=== PATIENT | male | born 1965 | race Caucasian/White ===

== ENCOUNTER 2016-07-31 20:49 | Emergency (ER) | payer MEDICAID, MEDICARE ==
[~2016-07-31] VITALS: Ht 198.1 cm; Wt 87.0 kg
[~2016-07-31 20:49] MED LIST: AMIT100T2 PO; ATEN25TA PO; BUSP15TA3 PO; CITA20TA PO; COLE1TAB2 PO; KLO5T PO; TIOT18CA3 IH
[2016-07-31 20:52] VITALS: BP 149/104; PULSE 111; RESP 20; O2SAT 99
--- NOTE | 2016-07-31 20:53 | ED.REPORT ---
HPI-Chest Pain 40 and Over Date of Service Jul 31, 2016 ED Provider: Dr. Cardoza Pt is a 51 y/o male w/ a hx of Marfan syndrome, self-reported dilated aorta, recurrent spontaneous pneumothoraces, COPD, psychiatric illness, presenting to the ED c/o diffuse CP onset today. The patient was moving furniture all day and believes his pain is caused by ripped up old scar tissue. He c/o associated SOB and pleuritic pain. He denies cough, fever, chills, N/V/D. He presented to the ED on 11/23/15 and was seen by me with complaints of CP after lifting a heavy TV and a chest CTA was performed showing normal size of aorta with no dissection. Nursing Notes Stated Complaint: CHEST PAIN Chief Complaint: Chest Pain-Non Cardiac Nature Nursing Notes Reviewed: Yes Allergies: Coded Allergies: No Known Allergies (Verified Allergy, Unknown, 04/23/16) Scheduled Amitriptyline (Amitriptyline) 100 Mg Tablet 100 MG PO HS Atenolol (Atenolol) 25 Mg Tablet 25 MG PO BID Buspirone (Buspirone) 15 Mg Tablet 15 MG PO BID Citalopram Hydrobromide (Celexa) 20 Mg Tablet 40 MG PO DAILY Colestipol (Colestipol) 1 Gm Tablet 2 TAB PO BID Tiotropium [place] (Spiriva) 18 Mcg Cap.w.dev 18 MCG IH DAILY Scheduled PRN Clonazepam (Clonazepam) 0.5 Mg Tablet 0.5 MG PO TID PRN PRN For Anxiety General Time Seen by MD: 20:53 Chief Complaint Chest pain Hx Obtained From: Patient Arrived By: Walk-in Sudden in Onset?: No Onset Occurred: 5 - 8 hours ago Context of Onset: Heavy exertion Symptom Duration: Since onset Location: : Chest left: Chest right Quality: Aching, Painful Radiation: : Does not radiate Severity: Current: Moderate Severity: Maximum: Moderate Recent Healthcare: Previous diagnosis Similar Sx Previous: Yes Past Medical History Past Medical History 1. He reports that he has been diagnosed as having Marfan syndrome with a dilated aorta. - normal size on chest CTA 11/23/15 2. Chronic pain syndrome due to his history of spontaneous pneumothoraces for which he has had pleurodesis. 3. Generalized anxiety and major depression with history of a suicide attempt when his father in 2010. Two total suicide attempts 4. History of opiate and benzo dependence and history of DUI in the past. 5. Chronic obstructive pulmonary disease, not oxygen dependent. 6. History of recurrent pneumothoraces. 7. Irritable bowel syndrome 8. History of left lung nodule. 9. Hypotension 10. Hypernatremia 12. gastric ulcers Past Surgical History 1. Right thoracotomy and pleurodesis in 1995. 2. Left thoracotomy and pleurodesis in 1996. 3. Right hand surgery when he had an accident with a table saw and injured all the fingers except for the pinky finger. 4. Colonoscopy Family History Father of at age 74 from an abdominal aneurysm. His older brother, Louis, is an alcoholic. Smoking History Current Every Day Smoker Social History Alcohol Use: Denies alcohol use Drug Use: THC Other Social History: Good social support, Local resident Ambulatory Status Independent Review of Systems Constitutional: Denies: Chills, Fever Respiratory: Reports: Pleuritic pain, Shortness of breath, Denies: Non-productive cough Cardiovascular: Reports: Chest pain, Denies: Dyspnea on exertion, Edema GI: Denies: Abdominal pain, Nausea, Vomiting Complete sys rev & neg: except as marked. Physical Exam Initial Vital Signs Vital Signs (First) Date Time Temp Pulse Resp B/P Pulse Ox O2 Delivery O2 Flow Rate FiO2 07/31/16 20:52 36.9 111 20 149/104 99 Room Air 07/31/16 21:08 2 Initial VS: Reviewed, Vital signs abnormal Head / Eyes: Atraumatic, Normocephalic, PERRL ENT: Mucous membranes moist, Conjunctiva normal, No scleral icterus Neck: Supple, Full range of motion Extremities: Vascular intact, Neuro intact, No swelling, No tenderness Skin: Warm, Dry, No cyanosis Neurologic: Alert, Oriented, Nonfocal Psychiatric: Mood/affect normal, Behavior normal, Normal thought content General/Constitutional: Awake, Alert, Cooperative, Not toxic appearing Distress / Hydration: Positive: Distress moderate Appearance / Presentation: Positive: In pain, Uncomfortable Marfan appearance Respiratory / Chest: Atraumatic, Breath sounds NL, Breath sounds = bilat, No rales, No rhonchi, No wheezing, No stridor, No chest wall deformity, No crepitus Diffuse chest wall tenderness, increased over scar tissue on left chest wall Splinting respirations Cardiovascular: Heart rate NL, Regular rhythm, Heart sounds NL, No gallop, No murmurs, No rubs, Cap refill not delayed, Peripheral circulation NL Abdomen: Atraumatic, Soft, Non-tender, No guarding, No rebound, No distention, No palpable mass Interpretation & Diagnostics Lab Results Interpretation Result Diagram: 07/31/16 2100 07/31/16 2100 Test 07/31/16 21:00 08/01/16 04:30 White Blood Count 7.0th/mm3 (3.8-10.1) Red Blood Count 4.53mil/mm3 (4.40-5.80) Hemoglobin 13.4g/dL (13.8-17.2) Hematocrit 40.5% (41.0-50.0) Mean Corpuscular Volume 89.4fL (81-100) Mean Corpuscular Hemoglobin 29.6pg (27.0-35.0) Mean Corpuscular Hemoglobin Concent 33.1% (32.0-37.0) Red Cell Distribution Width 13.7% (12.3-15.4) Platelet Count 233bil/L (150-400) Neutrophils (%) (Auto) 52.6% (40-74) Lymphocytes (%) (Auto) 38.5% (14-46) Monocytes (%) (Auto) 7.4% (4-12) Eosinophils (%) (Auto) 1.1% (0-5) Basophils (%) (Auto) 0.3% (0-3) Hold Purple Top Tube Received (Received) D-Dimer < 0.50mg/L FEU (<0.50) Hold Blue Top Tube Received (Received) Sodium Level 138mEq/L (134-144) Potassium Level 4.0mEq/L (3.5-5.2) Chloride Level 99mEq/L (97-108) Carbon Dioxide Level 23mmol/L (18-29) Blood Urea Nitrogen 10mg/dL (6-24) Creatinine 1.09mg/dL (0.76-1.27) Estimat Glomerular Filtration Rate 75mL/min (>59) Glucose Level 109mg/dL (60-99) Calcium Level 9.0mg/dL (8.5-10.1) Total Bilirubin 0.2mg/dL (0.0-1.2) Aspartate Amino Transf (AST/SGOT) 14U/L (0-50) Alanine Aminotransferase (ALT/SGPT) 9U/L (0-44) Alkaline Phosphatase 69U/L (25-150) Total Protein 6.7g/dL (6.4-8.4) Albumin 3.8g/dL (3.4-5.0) Hold [place] Top Tube Received (Received) Troponin T 0.010ug/L (0.0-0.011) ECG Interpretation ECG Interpretation: Sinus tachycardia rate 100 Time: 21:24 Interpreted by: ED physician Normal ECG Interpretation: No acute ischemic changes X-Ray Chest Interpretation View: Portable, 1 view Interpretation / Wet Read by: Wet read ED physician Reviewed Previous Films: No change NL X-Ray Chest Findings: No infiltrate, No acute disease Re-Eval/Medical Decision Med Decision/Clinical Course I know Kaushik very well. I taken care of him several times. We had long discussions as well as Marfan syndrome. Today nothing seems like an aortic dissection or pulmonary emboli. He can ripped up some scar tissue in his left chest when he was moving furniture. He was adequately treated with some analgesia. D-dimer was negative. Troponins were negative. I do not feel that another CT is indicated he concurs. He has symmetric blood pressure 4 tremors. His mediastinum is not widened and he has negative d-dimer. He has had a recent chest CT. I think anymore at this point is his all risk and no benefit. He concurs. He has been doing well mentally. No suicidal ideations. He does seem to be a moderately severe amount of pain so be discharged home with a Percocet 10 pack and have close outpatient follow-up. Routine opiate warnings were given Time of Eval: 02:59 Patient Status: Condition resolved, Complete relief, Pain resolved Re-Evaluation/Progress Note: Pt rechecked. Informed pt of plan for treatment. Pt understands and agrees with plan for treatment. F/U and RTER warnings given. All questions addressed. Counseled Regarding: Diagnosis, Lab results, Need for follow-up, When/why to return to ED Discharge & Departure Primary Impression: Non-cardiac chest pain Disposition: Home Discharge Condition All VS Reviewed: Yes Condition: Stable Patient Instructions: Chest Pain (ED) Additional Instructions: Your EKG, serial heart enzymes, chest x-ray, and labs today were normal. I suspect your chest pain is musculoskeletal in nature. Take 1-2 Percocet every 6 hours as needed for severe pain. Do not take this with any other sedating medications including your anti-anxiety medications. Do not drive, drink alcohol, or consume Acetaminophen when taking Percocet. Return to the emergency department for any new or worsening symptoms. Follow-up with your doctor next week. Referrals: Jacky Tran DO (PCP) [place] Attestation Portions of this note were transcribed by Alfa Urbina. I, Dr. Cardoza personally performed the history, physical exam and medical decision-making; I reviewed and confirmed the accuracy of the information in the transcribed note. Signed by Ariane Lubin, 07/31/162129 copies to: Jacky Tran Todd P DO Jul 31, 2016 20:53 ALFA URBINA Jul 31, 2016 21:01
[2016-07-31 21:08] VITALS: RESP 20; O2SAT 100
[2016-07-31 21:18] LABS: BASOPHILS % (AUTO) 0.3 % (0-3); EOSINOPHILS % (AUTO) 1.1 % (0-5); MONOCYTES % (AUTO) 7.4 % (4-12); Mean Corpuscular Hemoglobin 29.6 pg (27.0-35.0); Mean Corpuscular Volume 89.4 fL (81-100); NEUTROPHILS % (AUTO) 52.6 % (40-74); Platelet Count 233 bil/L (150-400)
[2016-07-31 22:07] LABS: TROPONIN T 0.01 ug/L (0.0-0.011)
[2016-07-31 22:39] VITALS: BP 131/86; PULSE 83; RESP 18; O2SAT 98
[2016-07-31] MEDS: HYDROmorphone 0.5 mg/0.5 mL iSecure Syringe IVPUSH PRN (22:40)
[2016-07-31 23:30] VITALS: BP 133/89; PULSE 75; RESP 18; O2SAT 98
[2016-08-01] VITALS: BP 118/79; PULSE 81; RESP 18; O2SAT 99
[2016-08-01] MEDS: HYDROmorphone 0.5 mg/0.5 mL iSecure Syringe IVPUSH PRN (00:16)
[2016-08-01 01:00] VITALS: BP 122/75; PULSE 68; RESP 18; O2SAT 99
[2016-08-01 02:30] VITALS: BP 130/69; PULSE 67; RESP 18; O2SAT 99
[2016-08-01] MEDS ORDERED: _oxyCODONE/APAP 5-325 mg Tablet PO PRN (03:00)
[2016-08-01 05:40] VITALS: BP 118/84; PULSE 78; RESP 18; O2SAT 99
--- NOTE | 2016-08-01 06:21 | DRSVH ---
PROCEDURE: X-RAY CHEST ONE VIEW, PORTABLE ([id number]) INDICATIONS: 51-year-old male with chest pain, and history of Marfan syndrome. TECHNIQUE: One view of the chest was acquired. COMPARISON: [facility], CR, XR CHEST 1V PORTABLE, 12/01/2015, 5:17 AM. [facility], CR, XR CHEST 1VW (PORTABLE), 11/24/2015, 23:28. [facility], CR, XR CHEST 1VW (PO RTABLE), 11/22/2015, 20:31. FINDINGS: Surgical changes and devices: None. Lungs and pleura: No pleural effusions or pneumothorax. Lungs are clear. Mediastinum: Mediastinal contours appear normal. Heart size is normal. Bones and chest wall: No suspicious bony lesions. Overlying soft tissues appear unremarkable. IMPRESSION: No acute cardiopulmonary disease. Dictated by: Chance Altman M.D. on 08/01/2016 at 6:18 Approved by: Chance Altman M.D. on 08/01/2016 at 6:20
== END 2016-08-01 05:41 | disposition home or self-care (01) ==
LOC: SED 20:49
DX: R07.89 Other chest pain (principal); J44.9 Chronic obstructive pulmonary disease, unspecified; F17.200 Nicotine dependence, unspecified, uncomplicated
CPT/HCPCS: 36415; 71010; 80053; 84484; 85025; 85378; 93005; 96374; 96376; 99285; J1170

== ENCOUNTER 2016-08-30 20:40 | Emergency (ER) | payer MEDICARE, MEDICAID ==
[~2016-08-30] VITALS: Ht 198.1 cm; Wt 86.4 kg
[2016-08-30 21:59] VITALS: BP 114/77; PULSE 87; RESP 20; O2SAT 98
[2016-08-30 23:05] LABS: BASOPHILS % (AUTO) 0.3 % (0-3); EOSINOPHILS % (AUTO) 0.6 % (0-5); MONOCYTES % (AUTO) 6.3 % (4-12); Mean Corpuscular Hemoglobin 29.9 pg (27.0-35.0); Mean Corpuscular Volume 86.9 fL (81-100); NEUTROPHILS % (AUTO) 64.7 % (40-74); Platelet Count 236 bil/L (150-400)
[2016-08-30 23:49] LABS: Magnesium 2.1 mg/dL (1.6-2.6)
--- NOTE | 2016-08-30 23:56 | ED.REPORT ---
HPI-NVD Date of Service Aug 30, 2016 ED Provider: Dr. Dela Cruz 51 y/o male with a hx of COPD, emphysema and Marfan syndrome presents to the ED with multiple complaints.Pt reports nausea, vomiting, diarrhea and chills for the last two weeks. He also complains of a burning sensation on the right side of his abdomen and a lump in the back of his throat. Pt reports concern that his sx may be related to his gastric ulcer. Nursing Notes Stated Complaint: VOMITING, DIARRHEA, GROWTH ON THROAT Chief Complaint: General Complaint Nursing Notes Reviewed: Yes Allergies: Coded Allergies: No Known Allergies (Verified Allergy, Unknown, 04/23/16) Scheduled Amitriptyline (Amitriptyline) 100 Mg Tablet 100 MG PO HS Atenolol (Atenolol) 25 Mg Tablet 25 MG PO BID Buspirone (Buspirone) 15 Mg Tablet 15 MG PO BID Citalopram Hydrobromide (Celexa) 20 Mg Tablet 40 MG PO DAILY Colestipol (Colestipol) 1 Gm Tablet 2 TAB PO BID Tiotropium [place] (Spiriva) 18 Mcg Cap.w.dev 18 MCG IH DAILY Scheduled PRN Clonazepam (Clonazepam) 0.5 Mg Tablet 0.5 MG PO TID PRN PRN For Anxiety Metoclopramide (Metoclopramide) 10 Mg Tablet 10 MG PO QID PRN PRN For Nausea General Time Seen by MD: 23:55 Chief Complaint Nausea, Vomiting Hx Obtained From: Patient Arrived By: Walk-in Onset Occurred: More than a week ago... (2 weeks) Symptom Duration: Since onset Location: : Epigastric: RUQ Quality: Painful Severity: Current: Mild Severity: Maximum: Mild Recent Healthcare: No recent doctor visit Similar Sx Previous: No Past Medical History Past Medical History 1. He reports that he has been diagnosed as having Marfan syndrome with a dilated aorta. - normal size on chest CTA 11/23/15 2. Chronic pain syndrome due to his history of spontaneous pneumothoraces for which he has had pleurodesis. 3. Generalized anxiety and major depression with history of a suicide attempt when his father in 2010. Two total suicide attempts 4. History of opiate and benzo dependence and history of DUI in the past. 5. Chronic obstructive pulmonary disease, not oxygen dependent. 6. History of recurrent pneumothoraces. 7. Irritable bowel syndrome 8. History of left lung nodule. 9. Hypotension 10. Hypernatremia 12. gastric ulcers Past Surgical History 1. Right thoracotomy and pleurodesis in 1995. 2. Left thoracotomy and pleurodesis in 1996. 3. Right hand surgery when he had an accident with a table saw and injured all the fingers except for the pinky finger. 4. Colonoscopy Family History Father of at age 74 from an abdominal aneurysm. His older brother, Louis, is an alcoholic. Smoking History Current Every Day Smoker Social History Alcohol Use: Denies alcohol use Drug Use: THC Other Social History: Good social support, Local resident Ambulatory Status Independent Review of Systems Reports: lump in the back of the throat. Constitutional: Reports: Chills GI: Reports: Abdominal pain, Diarrhea, Nausea, Vomiting Complete sys rev & neg: except as marked. Physical Exam Initial Vital Signs Vital Signs (First) Date Time Temp Pulse Resp B/P Pulse Ox O2 Delivery O2 Flow Rate FiO2 08/30/16 21:59 37.1 87 20 114/77 98 08/30/16 23:59 Room Air Initial VS: Reviewed, Vital signs normal Head / Eyes: Atraumatic, Normocephalic, PERRL Neck: Supple, Non-tender, Full range of motion Respiratory: Breath sounds normal, Clear to auscultation, No respiratory distress Cardiovascular: Regular rate & rhythm, Heart sounds normal, Intact distal pulses Extremities: Vascular intact, Neuro intact, No swelling, No tenderness Skin: Warm, Dry, No cyanosis Neurologic: Alert, Oriented, Nonfocal Psychiatric: Mood/affect normal, Behavior normal, Normal thought content General/Constitutional: Awake, Alert Distress / Hydration: Positive: Dehydration mild Abdomen: Atraumatic Tenderness/Guarding/Rebound: Positive: Tender RUQ..., Tender epigastric Pustule on right tonsil. Interpretation & Diagnostics Lab Results Interpretation Result Diagram: 08/30/16223108/30/162231 Test 08/30/16 22:32 08/31/16 00:10 White Blood Count 9.9th/mm3 (3.8-10.1) Red Blood Count 4.95mil/mm3 (4.40-5.80) Hemoglobin 14.8g/dL (13.8-17.2) Hematocrit 43.0% (41.0-50.0) Mean Corpuscular Volume 86.9fL (81-100) Mean Corpuscular Hemoglobin 29.9pg (27.0-35.0) Mean Corpuscular Hemoglobin Concent 34.4% (32.0-37.0) Red Cell Distribution Width 12.4% (12.3-15.4) Platelet Count 236bil/L (150-400) Neutrophils (%) (Auto) 64.7% (40-74) Lymphocytes (%) (Auto) 27.9% (14-46) Monocytes (%) (Auto) 6.3% (4-12) Eosinophils (%) (Auto) 0.6% (0-5) Basophils (%) (Auto) 0.3% (0-3) Band Neutrophils % 0% (1-5) Sodium Level 137mEq/L (134-144) Potassium Level 3.8mEq/L (3.5-5.2) Chloride Level 96mEq/L (97-108) Carbon Dioxide Level 23mmol/L (18-29) Blood Urea Nitrogen 16mg/dL (6-24) Creatinine 1.01mg/dL (0.76-1.27) Estimat Glomerular Filtration Rate 82mL/min (>59) Glucose Level 87mg/dL (60-99) Calcium Level 8.7mg/dL (8.5-10.1) Magnesium Level 2.1mg/dL (1.6-2.6) Total Bilirubin 0.3mg/dL (0.0-1.2) Aspartate Amino Transf (AST/SGOT) 16U/L (0-50) Alanine Aminotransferase (ALT/SGPT) 9U/L (0-44) Alkaline Phosphatase 82U/L (25-150) Total Protein 7.2g/dL (6.4-8.4) Albumin 4.5g/dL (3.4-5.0) Lipase 18U/L (13-60) Hold [place] Top Tube Received (Received) Urine Color Yellow (YELLOW) Urine Appearance Clear (CLEAR,HAZY) Urine pH 5.5 (5.0-8.0) Urine Specific [place] 1.005 (1.003-1.035) Urine Protein Negativemg/dL (NEG,TRACE) Urine Glucose (UA) Negativemg/dL (NEGATIVE) Urine Ketones Negativemg/dL (NEGATIVE) Urine Occult Blood Small (NEGATIVE) Urine Nitrite Negative (NEGATIVE) Urine Bilirubin Negative (NEGATIVE) Urine Urobilinogen Normalmg/dL (NORMAL) Urine Leukocyte Esterase Negative (NEGATIVE) Urine RBC 0-2/hpf (0-2) Urine WBC 0-5/hpf (0-5) Urine Epithelial Cells Occasional/hpf (NONE-MOD) Urine Crystals None seen (NONE SEEN) Urine Bacteria None/hpf (NONE-FEW) Urine Hyaline Casts None/lpf (NONE) Urine Granular Casts None seen (NONE SEEN) Urine Waxy Casts None seen (NONE SEEN) Urine Red Blood Cell Casts None seen (NONE SEEN) Urine White Blood Cell Casts None seen (NONE SEEN) Urine Mucus None seen (None Seen) Urine Trichomonas None seen (NONE SEEN) Urine Yeast None (NONE SEEN) Urinalysis Comment None Urine Culture Reflexed Not indicated Lab values outside NL range: no clinical significance. Lab Results Interpretation: Rapid strep negative Re-Eval/Medical Decision Med Decision/Clinical Course 51-year-old male who has a nonspecific abdominal pain and a variety of other symptoms. ER workup is unremarkable. His abdominal exam shows some diffuse mild abdominal tenderness, nonspecific. Strep throat test is negative. He will be discharged home. He requests Reglan which she has taken in the past with good relief of his nausea symptoms. It has a potential for interaction with his SSRI. He was warned about symptoms to watch for and told to limit his dose to 2 pills daily when necessary. He will follow-up with his primary doctor. Source of Hx: Old records Re-Evaluation/Progress #1: Time of Eval: 03:25 Patient Status: Condition improved Re-Evaluation/Progress Note: Pt rechecked. Pt reports imrpovement in condition Re-Evaluation/Progress #2: Time of Eval: 05:27 Patient Status: Condition improved Re-Evaluation/Progress Note: Rechecked pt. Discussed lab results and diagnosis. Informed the pt of the plan to discharge. Pt understands and agrees with plan. F/U instructions and RTER warning given. All questions addressed. Discharge & Departure Impression: Primary Impression: Nausea & vomiting Vomiting type: unspecified Vomiting Intractability: non-intractable Qualified Code: R11.2 - Nausea with vomiting, unspecified Additional Impression: Abdominal pain Abdominal location: generalized Qualified Code: R10.84 - Generalized abdominal pain Disposition: Home Discharge Condition All VS Reviewed: Yes Patient Instructions: Acute Nausea and Vomiting (ED) Additional Instructions: Ondansetron 4-8 mg dissolved orally 4 times daily. Reglan (metoclopramide) Referrals: Jacky Tran DO (PCP) Scribe Attestation Portions of this note were transcribed by Miguelangel Mason. I, , personally performed the history, physical exam and medical decision-making;I reviewed and confirmed the accuracy of the information in the transcribed note. Signed by Ariane Story. 08/31/16 0557 copies to: Jacky Tran Howard L MD Aug 30, 2016 23:56 Miguelangel Mason August 31, 2016 00:26
[2016-08-30 23:59] VITALS: BP 104/69; PULSE 78; RESP 20; O2SAT 98
[2016-08-31] MEDS ORDERED: 0.9% Sodium Chloride 1,000 ML IV ONE ×2 (00:24→02:45)
[2016-08-31] MEDS ORDERED: Pantoprazole 4 mg/mL 10 mL Inj IVPUSH ONE (00:25)
[2016-08-31] MEDS: HYDROmorphone 0.5 mg/0.5 mL iSecure Syringe IVPUSH PRN ×2 (00:42→02:21)
[2016-08-31] MEDS: Ondansetron 2 mg/mL 2 mL Inj IVPUSH PRN ×2 (00:42→02:21)
[2016-08-31 00:59] LABS: APPEARANCE,URINE CLEAR (CLEAR,HAZY); COLOR,URINE YELLOW (YELLOW); OCCULT BLOOD,URINE SMALL (NEGATIVE); PH,URINE 5.5 (5.0-8.0); UROBILINOGEN,URINE NORMAL (NORMAL)
[2016-08-31 05:02] VITALS: BP 125/77; PULSE 80; RESP 18; O2SAT 98
[2016-08-31] MEDS ORDERED: _Ondansetron ODT 4 mg Tablet PO PRN (05:35)
[2016-08-31] MEDS ORDERED: METO10TA3 PO (05:39)
== END 2016-08-31 06:02 | disposition home or self-care (01) ==
LOC: SED 20:40
DX: R11.2 Nausea with vomiting, unspecified (principal); R10.11 Right upper quadrant pain; R19.7 Diarrhea, unspecified; R68.83 Chills (without fever); R22.1 Localized swelling, mass and lump, neck; F17.200 Nicotine dependence, unspecified, uncomplicated; J44.9 Chronic obstructive pulmonary disease, unspecified
CPT/HCPCS: 36415; 80053; 81000; 83690; 83735; 85025; 87880; 96361; 96374; 96375; 96376; 99285; J1170; J2405; J7030

== ENCOUNTER 2016-12-11 15:25 | Emergency (ER) | payer MEDICARE, MEDICAID ==
[~2016-12-11] VITALS: Ht 198.1 cm; Wt 86.0 kg
[~2016-12-11 15:25] MED LIST changes: +METO10TA3 PO
[2016-12-11 15:28] VITALS: BP 154/98; PULSE 74; RESP 20; O2SAT 99
--- NOTE | 2016-12-11 15:35 | ED.REPORT ---
HPI-General Illness Date of Service Dec 11, 2016 ED Provider: Berlin Amaral MD A 51 year old male presents to the ED with a history of Marfan's syndrome with a dilated aorta, anxiety, hypotension, IBS, hypernatremia, COPD and recurrent pneumothoraces presents to the ED with right sided, aching chest pain that began at 0700 this morning. The patient woke up with the pain this morning and it has become progressively worse over the course of the day. Associated symptoms include SOB and the pain is exacerbated by breathing and movement, including moving his arms around. He rates his current pain as a 9/10. The pain does not radiate to his back, jaw or arm. He denies any new headaches, fevers, chills, vision changes, diarrhea, constipation, nausea, vomiting, hematochezia, hematemesis, dysuria, unilateral weakness, numbness or tingling. The patient denies any recent illnesses. He states that he was moving some things and thinks this may have made it worse. Nursing Notes Stated Complaint: CHEST PAIN Chief Complaint: Chest Pain Nursing Notes Reviewed: Yes Allergies: Coded Allergies: No Known Allergies (Verified Allergy, Unknown, 04/23/16) Scheduled Amitriptyline (Amitriptyline) 100 Mg Tablet 100 MG PO HS Atenolol (Atenolol) 25 Mg Tablet 25 MG PO BID Buspirone (Buspirone) 15 Mg Tablet 15 MG PO BID Citalopram Hydrobromide (Celexa) 20 Mg Tablet 40 MG PO DAILY Colestipol (Colestipol) 1 Gm Tablet 2 TAB PO BID Tiotropium Rattan (Spiriva) 18 Mcg Cap.w.dev 18 MCG IH DAILY Scheduled PRN Clonazepam (Clonazepam) 0.5 Mg Tablet 0.5 MG PO TID PRN PRN For Anxiety Metoclopramide (Metoclopramide) 10 Mg Tablet 10 MG PO QID PRN PRN For Nausea General Time Seen by MD: 15:34 Chief Complaint Chest pain Hx Obtained From: Patient Arrived By: Walk-in Sudden in Onset?: No Onset Occurred: 5 - 8 hours ago Symptom Duration: Since onset Location: : Chest Quality: Painful Radiation: : Does not radiate Severity: Current: Pain level 9 out of 10 Severity: Maximum: Pain level 9 out of 10 Associated with: Reports: Chest pain, Shortness of breath, Denies: Abdominal pain, Fever, Nausea, Vomiting, Weakness Pertinent Negative: Pt denies other symptoms Recent Healthcare: Recent doctor visit (N/V - 08/2016) Past Medical History Past Medical History 1. He reports that he has been diagnosed as having Marfan syndrome with a dilated aorta. - normal size on chest CTA 11/23/15 2. Chronic pain syndrome due to his history of spontaneous pneumothoraces for which he has had pleurodesis. 3. Generalized anxiety and major depression with history of a suicide attempt when his father in 2010. Two total suicide attempts 4. History of opiate and benzo dependence and history of DUI in the past. 5. Chronic obstructive pulmonary disease, not oxygen dependent. 6. History of recurrent pneumothoraces. 7. Irritable bowel syndrome 8. History of left lung nodule. 9. Hypotension 10. Hypernatremia 12. gastric ulcers Past Surgical History 1. Right thoracotomy and pleurodesis in 1995. 2. Left thoracotomy and pleurodesis in 1996. 3. Right hand surgery when he had an accident with a table saw and injured all the fingers except for the pinky finger. 4. Colonoscopy Family History Father of at age 74 from an abdominal aneurysm. His older brother, Louis, is an alcoholic. Smoking History Current Every Day Smoker Social History Alcohol Use: Denies alcohol use Drug Use: THC Other Social History: Good social support, Local resident Ambulatory Status Independent Review of Systems Full Review of Systems Constitutional: Denies: Chills, Fever Respiratory: Denies: Shortness of breath Cardiovascular: Denies: Chest pain GI: Denies: Abdominal pain, Constipation, Diarrhea, Hematemesis, Hematochezia, Nausea, Vomiting Male: Denies Dysuria, Denies Hematuria Neurologic: Denies: Headache, Numbness, Vision change, Weakness Complete sys rev & neg: except as marked. Physical Exam Nursing note and vitals reviewed. Constitutional: Awake. Alert. Not diaphoretic. Marfanoid appearance. Head: Normocephalic and atraumatic. Mouth/Throat: Oropharynx is clear and moist. No oropharyngeal exudate. Eyes: EOM are normal. Pupils are equal, round, and reactive to light. Neck: Supple, no tracheal deviation. Cardiovascular: Normal rate, regular rhythm. Equal and intact distal pulses throughout. Peripheral pulses equal in the bilateral upper extremities. Pulmonary/Chest: Effort normal and breath sounds normal. Equal breath sounds in all lung thomason. No respiratory distress. Mild L sided chest wall tenderness. Abdominal: Soft. No distension. There is no tenderness, rebound, or guarding. Musculoskeletal: Range of motion grossly intact, moving all extremities. No edema or tenderness appreciated. Neurological: AOx3. Grossly nonfocal exam. Strength and sensation intact and equal to bilateral upper and lower extremities. Skin: Warm and dry, no rashes or pallor appreciated. Psychiatric: Appropriate mood and affect. Behavior appears normal. Vital Signs Vital Signs Date Time Temp Pulse Resp B/P Pulse Ox O2 Delivery O2 Flow Rate FiO2 12/11/16 19:49 36.8 71 14 147/59 99 Room Air 12/11/16 17:02 66 13 153/57 99 Room Air 12/11/16 15:48 146/88 12/11/16 15:48 70 12 149/90 97 Room Air 12/11/16 15:28 36.7 74 20 154/98 99 Room Air Interpretation & Diagnostics Lab Results Interpretation Result Diagram: 12/11/16 1545 12/11/16 1545 Test 12/11/16 15:45 White Blood Count 7.5th/mm3 (3.8-10.1) Red Blood Count 4.62mil/mm3 (4.40-5.80) Hemoglobin 13.8g/dL (13.8-17.2) Hematocrit 40.9% (41.0-50.0) Mean Corpuscular Volume 88.5fL (81-100) Mean Corpuscular Hemoglobin 29.9pg (27.0-35.0) Mean Corpuscular Hemoglobin Concent 33.7% (32.0-37.0) Red Cell Distribution Width 13.0% (12.3-15.4) Platelet Count 231bil/L (150-400) Neutrophils (%) (Auto) 61.4% (40-74) Lymphocytes (%) (Auto) 31.6% (14-46) Monocytes (%) (Auto) 4.8% (4-12) Eosinophils (%) (Auto) 1.6% (0-5) Basophils (%) (Auto) 0.3% (0-3) Prothrombin Time 9.4sec (8.1-12.5) Prothromb Time International Ratio 0.88ratio Sodium Level 143mEq/L (134-144) Potassium Level 4.3mEq/L (3.5-5.2) Chloride Level 106mEq/L (97-108) Carbon Dioxide Level 22mmol/L (18-29) Blood Urea Nitrogen 10mg/dL (6-24) Creatinine 0.90mg/dL (0.76-1.27) Estimat Glomerular Filtration Rate 94mL/min (>59) Glucose Level 113mg/dL (60-99) Calcium Level 8.7mg/dL (8.5-10.1) Magnesium Level 2.1mg/dL (1.6-2.6) Total Bilirubin 0.2mg/dL (0.0-1.2) Aspartate Amino Transf (AST/SGOT) 17U/L (0-50) Alanine Aminotransferase (ALT/SGPT) 13U/L (0-44) Alkaline Phosphatase 83U/L (25-150) Troponin T < 0.010ug/L (0.0-0.011) Total Protein 6.6g/dL (6.4-8.4) Albumin 4.0g/dL (3.4-5.0) ECG Interpretation ECG Interpretation: Sinus rhythm Rate 71 bpm No acute ischemic changes Time: 15:48 Interpreted by: ED physician X-Ray Chest Interpretation Chest Xray Interpretation: IMPRESSION: 1. Findings compatible with COPD redemonstrated. 2. Bilateral apical pleural parenchymal thickening consistent with scarring again noted. Dictated by: Carlo Zepeda M.D. on 12/11/2016 at 16:02 Interpretation / Wet Read by: Interpret - Radiologist CT Chest Interpretation IMPRESSION: 1. No acute pulmonary emboli. 2. The aortic root is poorly seen as the study is not cardiac gated but is mildly dialated measuring approximately 4 cm unchanged given differences in technique since the previous study. Dictated by: Steve Roy M.D. on 12/11/2016 at 17:58 Study type: CT pulm angiogram Interpretation / Wet Read by: Interpret - Radiologist Re-Eval/Medical Decision Med Decision/Clinical Course In summary, 51-year-old male with a PMHx notable for Marfan's syndrome who presents to the ED for evaluation of nonexertional left-sided chest pain that he noticed after moving some things earlier today. Differential includes ACS, PE , PTX, aortic dissection, myocarditis/pericarditis, abdominal etiology such as cholecystitis, MSK pain. Pain has been relatively constant since onset first thing this morning; troponin negative. HEART score of 2. EKG demonstrates sinus rhythm with no acute ischemic changes. Neither clinical presentation, exam, or EKG seem c/w pericarditis or myocarditis. No abdominal pain or tenderness. Rest of labs reviewed, unremarkable. Patient given aspirin here in the ED, as well as a small dose of Dilaudid with improvement in symptoms. CT scan demonstrates no evidence of PE and his aorta does not appear to be changed in size from previous; patient has equal blood pressures in bilateral upper extremities, no associated neurologic symptoms, and does have some chest wall tenderness to palpation that he states reproduces the pain he is presenting with - this also occurred while moving things earlier today. I think the likelihood of aortic dissection is extremely low given imaging and his clinical presentation. Patient would, however, likely benefit from a stress test for risk stratification as an outpatient. I discussed this with the patient at length, and also explained that while I thought it was appropriate to discharge him home at this time, I would like him to follow up with his primary care physician tomorrow. Very careful return precautions were discussed. Patient agreeable to plan, no further questions. Time of Eval: 18:17 Patient Status: Condition improved Re-Evaluation/Progress Note: The patient's symptoms have improved upon recheck. He is informed of his results and diagnosis. All questions are addressed. The patient understands and agrees with the intended treatment plan. Counseled Regarding: Diagnosis, Lab results, Need for follow-up, When/why to return to ED Discharge & Departure Primary Impression: Chest pain Chest pain type: unspecified Qualified Code: R07.9 - Chest pain, unspecified Disposition: Home Discharge Condition All VS Reviewed: Yes Condition: Improved Patient Instructions: Chest Pain (ED) Additional Instructions: Thank you for allowing us to be a part of your care in the ED today. Your emergency department results, including examination, lab work, EKG, chest X -ray and chest CT are reassuring. I do not think that there is an emergent cause for your symptoms today that would require admission to the hospital; however, a clear cause of your symptoms was not identified. Please schedule a follow up appointment with your primary care physician tomorrow for a recheck. Please return to the emergency department for any new or worsening symptoms including any worsening chest pain, nausea, vomiting, abdominal pain, shortness of breath, headaches, vision changes, one sided weakness/numbness, fevers, or chills, or if there's anything else of concern to you. Please also read the attached instructions. Referrals: Jacky Tran DO (PCP) Scribe Attestation Portions of this note were transcribed by Susi Davis. Dr. Cristin Garcia personally performed the history, physical exam and medical decision-making; I reviewed and confirmed the accuracy of the information in the transcribed note. copies to: Jacky Tran William B MD Dec 11, 2016 15:35 [facility] Dec 11, 2016 15:42 Jacky Tran DO (PCP) Scribe Attestation Portions of this note were transcribed by Susi Davis. Dr. Cristin Garcia personally performed the history, physical exam and medical decision-making; I reviewed and confirmed the accuracy of the information in the transcribed note. copies to: Jacky Tran William B MD Dec 11, 2016 15:35 [facility] Dec 11, 2016 15:42
[2016-12-11 15:48] VITALS: BP_SYST 146; BP_SYST 149; BP_DIAS 88; BP_DIAS 90; PULSE 70; RESP 12; O2SAT 97
[2016-12-11 15:58] LABS: BASOPHILS % (AUTO) 0.3 % (0-3); EOSINOPHILS % (AUTO) 1.6 % (0-5); MONOCYTES % (AUTO) 4.8 % (4-12); Mean Corpuscular Hemoglobin 29.9 pg (27.0-35.0); Mean Corpuscular Volume 88.5 fL (81-100); NEUTROPHILS % (AUTO) 61.4 % (40-74); Platelet Count 231 bil/L (150-400)
--- NOTE | 2016-12-11 16:10 | DRSVH ---
PROCEDURE: X-RAY CHEST ONE VIEW, PORTABLE ([id number]) INDICATIONS: hx marfan's, chest pain TECHNIQUE: One view of the chest was acquired. COMPARISON: [facility], CT, CT ANGIO CHEST, 11/23/2015, 1:15. [facility], CR , XR CHEST 1VW (PORTABLE), 07/31/2016, 22:40. FINDINGS: Surgical changes and devices: None. Lungs and pleura: No pleural effusions or pneumothorax. There is hyperinflation of the lungs with f lattening of the hemidiaphragms compatible with COPD. There is biapical pleural parenchymal thickeni ng redemonstrated. There are small peripheral nodular opacities redemonstrated bilaterally correspon ding to pleural thickening on the recent CT. Mediastinum: Mediastinal contours appear normal. Heart size is normal. Bones and chest wall: No suspicious bony lesions. Overlying soft tissues appear unremarkable. IMPRESSION: 1. Findings compatible with COPD redemonstrated. 2. Bilateral apical pleural parenchymal thickening consistent with scarring again noted. Dictated by: Carlo Zepeda M.D. on 12/11/2016 at 16:02 Approved by: Carlo Zepeda M.D. on 12/11/2016 at 16:08
[2016-12-11 16:17] LABS: INR 0.88 ratio
[2016-12-11 16:24] LABS: TROPONIN T < 0.010 ug/L (0.0-0.011)
[2016-12-11 16:34] LABS: Magnesium 2.1 mg/dL (1.6-2.6)
[2016-12-11] MEDS ORDERED: HYDROmorphone 0.5 mg/0.5 mL iSecure Syringe IVPUSH ONE (16:55)
[2016-12-11 17:02] VITALS: BP 153/57; PULSE 66; RESP 13; O2SAT 99
--- NOTE | 2016-12-11 18:08 | DRSVH ---
PROCEDURE: CT ANGIO CHEST PULMONARY EMBOLISM ([id number]) INDICATIONS: chest pain, hx of marfans TECHNIQUE: After the administration of intravenous contrast, 2 mm thick sections acquired from the pulmonary api jon to the posterior costophrenic angles. 3-dimensional maximum intensity projection (MIP) coronal a nd sagittal reformats were then acquired through the thorax. For radiation dose reduction, the follo wing was used: automated exposure control, adjustment of mA and/or kV according to patient size. COMPARISON: 12/25/2015. FINDINGS: Image quality: Excellent. Pulmonary arteries: Pulmonary arteries are normal in size, and demonstrate no intraluminal filling d efects to suggest central pulmonary embolism. Lungs and pleura: Right apical calcification may represent previous postoperative change or the seque lae of previous trauma. Biapical scarring. Dependent groundglass pulmonary opacities and/or atelectas is. No pleural effusions or pneumothorax. Central and peripheral airways are patent. Mediastinum: Heart size is normal, without pericardial effusion. No mediastinal or hilar adenopathy . Thoracic aorta is not opacified and the lumen cannot be evaluated. Grossly the aortic root is dila ila measuring approximately 4 cm although it is poorly seen on this non-cardiac gated study. Esophag us is normal in caliber, without hiatal hernia. Bones and chest wall: No suspicious bony lesions. Ribs and thoracic spine appear intact throughout. Thyroid gland is present. No axillary or supraclavicular adenopathy. Abdomen: Visualized upper abdominal solid organs appear normal in the early arterial phase of enhanc ement. IMPRESSION: 1. No acute pulmonary emboli. 2. The aortic root is poorly seen as the study is not cardiac gated but is mildly dialated measuring approximately 4 cm unchanged given differences in technique since the previous study. Dictated by: Steve Roy M.D. on 12/11/2016 at 17:58 Approved by: Steve Roy M.D. on 12/11/2016 at 18:06
[2016-12-11 19:49] VITALS: BP 147/59; PULSE 71; RESP 14; O2SAT 99
== END 2016-12-11 19:50 | disposition home or self-care (01) ==
LOC: SED 15:25
DX: R07.89 Other chest pain (principal); F41.9 Anxiety disorder, unspecified; J44.9 Chronic obstructive pulmonary disease, unspecified; F32.9 Major depressive disorder, single episode, unspecified; F17.200 Nicotine dependence, unspecified, uncomplicated; Q87.410 Marfan syndrome with aortic dilation
CPT/HCPCS: 36415; 71010; 71275; 80053; 83735; 84484; 85025; 85610; 93005; 96374; 99285; J1170; Q9967